=== PATIENT | male | born 2005 | race Caucasian/White ===

== ENCOUNTER 2025-04-28 12:49 | Emergency (ER) | payer OTHER ==
[~2025-04-28] VITALS: Ht 172.7 cm; Wt 81.8 kg
[2025-04-28 13:23] LABS: COVID AG,FIA SOURCE NASAL SWAB
[2025-04-28 13:49] LABS: RAPID GROUP A STREP NEGATIVE (NEGATIVE)
[2025-04-28 13:54] LABS: SARS-COV2 (COVID) ANTIGEN,FIA Negative (Negative)
[2025-04-28 13:54] LABS: PLATELET COUNT (AUTO) 346 K/uL (150-450); RED BLOOD CELL COUNT(AUTO) 5.88 MIL/uL (4.50-5.90); RED CELL DISTRIBUTION WIDTH 12.7 % (11.5-14.5); WHITE BLOOD COUNT (AUTO) 14.0 K/uL (4.5-11.0)
[2025-04-28 13:55] LABS: INFLUENZA TYPE A NEGATIVE FOR TYPE A (NEGATIVE); INFLUENZA TYPE B NEGATIVE FOR TYPE B (NEGATIVE)
[2025-04-28] MEDS ORDERED: IOHEXOL 350 MG/ML 100 ML VIAL ONE (13:59)
[2025-04-28] MEDS ORDERED: 0.9% SODIUM CHLORIDE 10 ML SYRINGE IVP ONE (14:00)
[2025-04-28] MEDS ORDERED: SODIUM CHLORIDE 0.9% 100 ML ONE (14:00)
[2025-04-28 14:05] LABS: CALCIUM, TOTAL 9.8 mg/dL (8.8-10.5); CREATININE 0.89 mg/dL (0.60-1.30); GLOMERULAR FILTR. RATE CALC > 60 mL/min (>60); GLUCOSE,RANDOM 88 mg/dL (70-110); SODIUM SERUM 137 mmol/L (136-145); UREA NITROGEN, BLOOD 12 mg/dL (7-18)
[2025-04-28 14:08] LABS: ASPARTATE AMINOTRANSFERASE 22 U/L (15-37); TOTAL PROTEIN, SERUM 8.6 g/dL (6.4-8.2)
[2025-04-28] MEDS: KETOROLAC TROMETHAMINE 30 MG/ML VIAL IVP ONE (14:50)
[2025-04-28] MEDS: DEXAMETHASONE SOD PHOS 4 MG/ML 5 ML VIAL IVP ONE (22:19)
[2025-04-28 22:21] VITALS: BP 116/68; PULSE 85; RESP 16; TEMP 97.9; O2SAT 97
== END 2025-04-28 22:20 | disposition short-term general hospital (02) ==
LOC: EMS 12:56
DX: E07.9 Disorder of thyroid, unspecified (principal); Z20.822 Contact with and (suspected) exposure to COVID-19
CPT/HCPCS: 99285; 96374; 70491; 96375; 87426; 80053; 84443; 85025; 87430; 87804; 36415; J1885; Q9967; J1100; J7050